=== PATIENT | male | born 1980 | race Two or more races ===

== ENCOUNTER 2023-05-10 13:33 | Emergency (ER) | payer OTHER ==
[2023-05-10 13:39] VITALS: BP 142/78; PULSE 104; RESP 18; TEMP 98; BMI 21.6
[2023-05-10] MEDS ORDERED: LIDOCAINE 2.5%/PRILOCAINE 2.5% 30 GRAM TUBE TP ONE (15:04)
[2023-05-10] MEDS ORDERED: LIDOCAINE 2.5%/PRILOCAINE 2.5% (5 Gram/TUBE) TP ONE (15:08)
== END 2023-05-10 15:15 | disposition home or self-care (01) ==
LOC: JERFT 13:33
DX: K62.89 Other specified diseases of anus and rectum (principal); K64.4 Residual hemorrhoidal skin tags
CPT/HCPCS: 99283-25

== ENCOUNTER 2023-09-28 13:28 | Emergency (ER) | payer OTHER ==
[2023-09-28 14:00] VITALS: BP 157/96; PULSE 90; RESP 16; TEMP 98.7; BMI 20.9
[2023-09-28] MEDS ORDERED: ACETAMINOPHEN 1000 MG/100 ML BAG IVPB ONE (16:39)
[2023-09-28] MEDS ORDERED: FAMOTIDINE 20 MG/50 ML IVPB 20 MG/50 ML MG IVPB ONE ×2 (16:39→17:09)
[2023-09-28] MEDS ORDERED: KETOROLAC TROMETHAMINE 30 MG/1 ML VIAL IVPUSH ONE (16:39)
[2023-09-28] MEDS ORDERED: ACETAMINOPHEN INJECTION 100 ML IVPB ONE (17:09)
[2023-09-28] MEDS ORDERED: KETOROLAC TROMETHAMINE 30 MG/1 ML VIAL ONE (17:09)
[2023-09-28 17:38] LABS: HEMOGLOBIN 15.1 GM/dL (11.7-16.9); LYMPH % 31.9 % (8-40); MCH 30.9 pg (25.7-33.7); MCHC 33.6 g/dl (32.0-35.9); MEAN CELL VOLUME 91.9 fl (80-96); MONO % 6.8 % (3.8-10.2); NEUT % 56.3 % (42.8-82.8); PLATELET COUNT 262 10^3/uL (134-434); RBC 4.89 M/mm3 (4.00-5.60); RDW 13.9 % (11.9-15.9); WHITE BLOOD COUNT 9.9 K/mm3 (4.0-10.0)
[2023-09-28 17:54] LABS: POTASSIUM 4.1 mmol/L (3.5-5.1)
[2023-09-28 17:56] LABS: ALBUMIN 3.7 g/dl (3.4-5.0); BLOOD UREA NITROGEN 12.3 mg/dL (7-18); CALCIUM 9.2 mg/dL (8.5-10.1)
[2023-09-28 17:59] LABS: CREATININE 0.9 mg/dL (0.55-1.3)
[2023-09-28 18:01] LABS: BILIRUBIN,TOTAL 0.3 mg/dL (0.2-1)
[2023-09-28 19:36] LABS: PH,URINE 5.5 (5.0-8.0); URINE APPEARANCE CLEAR; URINE BILIRUBIN NEGATIVE (NEGATIVE); URINE COLOR YELLOW; URINE GLUCOSE (UA) NEGATIVE (NEGATIVE); URINE KETONE TRACE (NEGATIVE)
[2023-09-28 19:37] LABS: URINE LEUK ESTERASE NEGATIVE (NEGATIVE); URINE NITRITE NEGATIVE (NEGATIVE); URINE PROTEIN N (NEGATIVE); URINE UROBILINOGEN 0.2 mg/dL (0.2-1.0)
[2023-09-28 21:21] LABS: PH,URINE 6.5 (5.0-8.0); URINE APPEARANCE CLOUDY; URINE BILIRUBIN NEGATIVE (NEGATIVE); URINE COLOR YELLOW; URINE GLUCOSE (UA) NEGATIVE (NEGATIVE); URINE KETONE NEGATIVE (NEGATIVE); URINE LEUK ESTERASE NEGATIVE (NEGATIVE); URINE NITRITE NEGATIVE (NEGATIVE); URINE PROTEIN NEGATIVE (NEGATIVE); URINE UROBILINOGEN 0.2 mg/dL (0.2-1.0)
== END 2023-09-28 20:34 | disposition home or self-care (01) ==
LOC: JER 13:28
PROC: 3E033GC Introduction of Other Therapeutic Substance into Peripheral Vein, Percutaneous Approach (ICD-10-PCS; principal; 2023-09-28)
PROC: 3E033NZ Introduction of Analgesics, Hypnotics, Sedatives into Peripheral Vein, Percutaneous Approach (ICD-10-PCS; 2023-09-28)
DX: R10.32 Left lower quadrant pain (principal); K52.9 Noninfective gastroenteritis and colitis, unspecified; M25.551 Pain in right hip
CPT/HCPCS: 36415; 74177-TC; 80053; 81003; 83690; 85025; 87086; 99285-25